=== PATIENT | female | born 1955 | race Caucasian/White ===

== ENCOUNTER 2021-04-04 03:00 | Emergency (ER) | payer MEDICARE ==
[~2021-04-04] VITALS: Ht 165.1 cm; Wt 113.0 kg
[2021-04-04 03:03] VITALS: BP 184/96
[2021-04-04] MEDS ORDERED: SODIUM CHLORIDE FLUSH 10ML SYR IVF ONE (03:30)
[2021-04-04] MEDS ORDERED: ONDANSETRON 2MG/ML, 2ML IVPush ONE ×2 (03:30→05:30)
[2021-04-04] MEDS ORDERED: ONDANSETRON 2MG/ML, 2ML ONE ×2 (03:32→05:03)
[2021-04-04] MEDS ORDERED: KETOROLAC 30 MG/1 ML ONE (03:32)
[2021-04-04 03:33] LABS: BASOPHILS % (AUTO) 1 % (0-1); EOSINOPHILS % (AUTO) 2 % (1-7); LYMPHOCYTES % (AUTO) 20 % (22-44); MEAN CORPUSCULAR HEMOGLOBIN 30.6 pg (27.0-34.8); MEAN CORPUSCULAR HGB CONC 34.6 g/dL (32.4-35.8); MEAN PLATELET VOLUME 8.7 fL (7.4-10.4); MONOCYTES % (AUTO) 7 % (2-9); NEUTROPHILS % (AUTO) 70 % (42-75); PLATELET COUNT 287 x10^3/uL (130-400); RED BLOOD COUNT 4.79 x10^6/uL (3.82-5.3)
[2021-04-04 03:42] LABS: ALBUMIN 3.7 g/dL (3.4-5.0); ANION GAP 8 mmol/L (5-15); CALCIUM 9.2 mg/dL (8.5-10.1); CHLORIDE 111 mmol/L (98-107); CREATININE 1.06 mg/dL (0.55-1.02)
[2021-04-04 03:49] LABS: ALANINE AMINOTRANSFERASE 37 U/L (12-78); BILIRUBIN, DIRECT 0.1 mg/dL (0.1-0.2)
[2021-04-04 03:51] LABS: ALKALINE PHOSPHATASE 108 U/L (45-117); BILIRUBIN,INDIRECT 0.4 mg/dL (0.0-2.0); BILIRUBIN,TOTAL 0.5 mg/dL (0.2-1.0); TOTAL PROTEIN 7.9 g/dL (6.4-8.2)
--- NOTE | 2021-04-04 03:57 | NUR ---
Pt ambulatory with steady gait to restroom to provide UA
[2021-04-04] MEDS ORDERED: KETOROLAC 30 MG/1 ML IVPush ONE (04:00)
[2021-04-04] MEDS ORDERED: KETOROLAC 30 MG/1 ML IM ONE (04:00)
--- NOTE | 2021-04-04 04:25 | NUR ---
Pt refuising BP reading
[2021-04-04 04:27] LABS: MICROSCOPIC INDICATED
[2021-04-04] MEDS ORDERED: MORPHINE SULFATE 4 MG/ML, 1ML ONE (05:03)
[2021-04-04] MEDS ORDERED: MORPHINE SULFATE 4 MG/ML, 1ML IVPush PRN (05:30)
== END 2021-04-04 06:13 | disposition home or self-care (01) ==
LOC: ED 05:41 → MERGE 05:41 → ED 06:13
DX: N13.2 Hydronephrosis with renal and ureteral calculous obstruction (principal); R31.29 Other microscopic hematuria; R10.31 Right lower quadrant pain; R11.0 Nausea
CPT/HCPCS: 36415; 74176; 80048; 80076; 81001; 82040; 83690; 85025; 87086; 93005; 96374; 96375; 96376; 99285; J1885; J2270; J2405